=== PATIENT | female | born 1985 | race Two or more races ===

== ENCOUNTER 2025-01-14 09:00 | Outpatient (RCR) | payer MEDICAID, SELFPAY ==
[2025-01-13 08:16] LABS: HCG Qualitative,Urine Negative
--- NOTE | 2025-01-13 08:30 | XR_ITS ---
Examination: Nuclear medicine thyroid scan and uptake Exam date and time: January 13, 2025 0754 hrs. Indications: Diagnosis nontoxic multinodular goiter, thyroid disease diagnosis 6 years ago with weight gain swollen neck Technique And Findings: Oral administration 293 uCi I-123 6 hour 24 hour uptake values recorded as well as anterior oblique scans 6 hour uptake 72.3% normal range 6-24% 24 hour uptake 59.6% normal range 10-36% Thyromegaly on the scans with no cold nodules Impression: Significantly elevated thyroid uptake values This patient is amenable to I-131 radiopharmaceutical therapy in the radiology department as clinically warranted
== END 2025-01-19 23:59 | disposition home or self-care (01) ==
LOC: SNUC 09:00
DX: E04.2 Nontoxic multinodular goiter (principal); Z32.00 Encounter for pregnancy test, result unknown
CPT/HCPCS: 78013; 81025; A9516